=== PATIENT | male | born 1990 | race Caucasian/White ===

== ENCOUNTER 2022-12-16 14:12 | Emergency (ER) | payer BC, SELFPAY ==
[2022-12-16 14:20] VITALS: BP 137/75; PULSE 78; RESP 20; TEMP 37; O2SAT 99
--- NOTE | 2022-12-16 15:15 | DI.CT_ITS ---
Exam(s) CT ABDOMEN PELVIS W EXAM: CT ABDOMEN PELVIS W CLINICAL HISTORY: bloating abdomainl pain to back, recent weight los. TECHNIQUE: Imaging Protocol: Axial computed tomography images with coronal and sagittal reformatted images were created and reviewed CONTRAST MATERIAL: Intravenous: Omnipaque 350 Contrast volume:100 ml Oral: yes / no COMPARISON: No exams were available for comparison FINDINGS: ABDOMEN: Lung Bases: Normal where visualized. Liver: Normal density. No measurable mass. Gallbladder and biliary tract: No radiodense calculus or dilation. Pancreas: Normal density, no abnormal calcifications or inflammatory process. Spleen: Normal. Kidneys: Normal size, contour and axis. No radiodense stones or obstructive uropathy. No suspicious m asses seen. Adrenal glands: No masses seen. Vasculature: Abdominal aorta non-dilated. Soft tissues: Small fatty containing inguinal hernias. PELVIS: Bladder: No gross wall thickening. No calculi.No focal mass. Bowel: No obstruction. No bowel wall thickening. Appendix normal. Normal quantity of stool. Peritoneal cavity: No ascites, collection or mesenteric inflammatory response. Bones: Unremarkable for age. Reproductive organs: Within normal limits. Lymph nodes: Unremarkable. IMPRESSION:: Unremarkable CT scan of the abdomen and pelvis. RADIATION DOSE DELIVERED: 1,267.89mGy.cm Total DLP DATA REPOSITORY: All CT scans at this facility are submitted to the National Radiology Data Registry (NRDR) Dose Index Registry (DIR) with the [employer] ([employer]). RADIATION OPTIMIZATION: All CT scans at this facility use at least one of these dose optimization te chniques: automated exposure control; mA and/or kV adjustment per patient size (includes targeted exa ms where dose is matched to clinical indication); or iterative reconstruction.
[2022-12-16 15:47] LABS: Abs Immature Grans 0.04 10^3/uL (0.0-0.06); Absolute Basophil Count 0.03 10^3/uL (0.0-0.2); Absolute Eosinophil Count 0.12 10^3/uL (0.0-0.7); Absolute Lymphocyte Count 1.92 10^3/uL (1.2-3.4); Absolute Monocyte Count 0.67 10^3/uL (0.1-0.8); Absolute Neutrophil Count 7.58 10^3/uL (1.2-6.7); Basophils % 0.3; Eosinophils % 1.2; HCT 42.5 % (40.0-50.0); HGB 14.3 g/dL (13.5-17.5); Immature Grans % 0.4; Lymphocytes % 18.5; MCH 28.8 pg (27.0-33.0); MCHC 33.6 % (32.0-36.0); MCV 86 fL (80-95); MPV 10.7 fL (8.0-11.0); Monocytes % 6.5; Neutrophils % 73.1; Platelet Count 223 10^3/uL (130-400); RBC 4.96 10^6/uL (4.36-5.78); RDW 12.5 % (11.8-14.1); RDW-SD 38.8 fL; WBC 10.36 10^3/uL (4.4-10.8)
[2022-12-16 16:01] LABS: ALT 13 U/L (16-63); AST 15 U/L (15-37); Albumin 4.4 g/dL (3.4-5.0); Alkaline Phosphatase 60 U/L (46-116); Anion Gap 10.3 mmol/L (3-11); BUN 8 mg/dL (7-18); CO2 26.7 mmol/L (21.0-32.0); CREATININE 0.9 mg/dL (0.70-1.30); Calcium 9.5 mg/dL (8.5-10.1); Chloride 103 mmol/L (98-107); Estimated GFR 115.65 (mL/min/1.73m2); Glucose 85 mg/dL (74-106); Lipase 32 U/L (16-77); Sodium 140 mmol/L (136-145); Total Protein 7.5 g/dL (6.4-8.2)
--- NOTE | 2022-12-16 16:07 | ED.GENADUL_ITS ---
Discharge Plan Discharge Details Chief Complaint: Abd Prob Primary Care Provider: Xiao,Local ED Provider: Ernesto Quiroz Home Meds and New Rx's Prescriptions: No Action No Known Home Meds Medical Decision Making 32-year-old male here with abdominal bloating and discomfort over the past few weeks, associated constipation requiring regular use of laxative, recent hemorrhoids. Patient has had recent unintentional weight loss. Patient does have some mild diffuse tenderness worse in the upper abdomen. Nonperitoneal on exam. Patient is afebrile and hemodynamically stable. Plan to check screening labs and obtain CT of the abdomen pelvis to assess for acute surgical pathology. Lab Data Lab results reviewed: Yes I reviewed the patient's lab results. Labs: Laboratory Tests Range/Units 12/16/22 12/16/22 15:36 15:36 WBC (4.4-10.8) 10^3/uL 10.36 RBC (4.36-5.78) 10^6/uL 4.96 Hgb (13.5-17.5) g/dL 14.3 Hct (40.0-50.0) % 42.5 MCV (80-95) fL 86 MCH (27.0-33.0) pg 28.8 MCHC (32.0-36.0) % 33.6 RDW (11.8-14.1) % 12.5 Plt Count (130-400) 10^3/uL 223 MPV (8.0-11.0) fL 10.7 Immature Gran % 0.4 Neutrophils % 73.1 Lymphocytes % 18.5 Monocytes % 6.5 Eosinophils % 1.2 Basophils % 0.3 Nucleated RBC % (0.0-0.3) % 0.0 Absolute Neutrophils (1.2-6.7) 10^3/uL 7.58 H Absolute Lymphocytes (1.2-3.4) 10^3/uL 1.92 Absolute Monocytes (0.1-0.8) 10^3/uL 0.67 Absolute Eosinophils (0.0-0.7) 10^3/uL 0.12 Absolute Basophils (0.0-0.2) 10^3/uL 0.03 Sodium (136-145) mmol/L 140 Potassium (3.5-5.1) mmol/L 4.0 Chloride (98-107) mmol/L 103 Carbon Dioxide (21.0-32.0) mmol/L 26.7 Anion Gap (3-11) mmol/L 10.3 BUN (7-18) mg/dL 8 Creatinine (0.70-1.30) mg/dL 0.9 Est GFR (CKD-EPI 2020) (mL/min/1.73m2) 115.65 Glucose (74-106) mg/dL 85 Calcium (8.5-10.1) mg/dL 9.5 Total Bilirubin (0.2-1.0) mg/dL 1.0 AST (15-37) U/L 15 ALT (16-63) U/L 13 L Alkaline Phosphatase (46-116) U/L 60 Total Protein (6.4-8.2) g/dL 7.5 Albumin (3.4-5.0) g/dL 4.4 Lipase (16-77) U/L 32 HPI General Mode of arrival: ambulatory . Date/Time Provider Initiated Documentation: 12/16/22 14:35 . Limitations to Documentation: no limitations . Information obtained by: patient . HPI Narrative: 32-year-old male presents with chief complaint of abdominal discomfort. Patient notes over the past 2 to 3 weeks he has had constipation and abdominal bloating. Over the same period of time he has had hemorrhoids and was seen in express care for these. Hemorrhoids have improved but continues to have difficulty with bowel movements. Patient notes he cannot have a bowel movement without using MiraLAX which he has been using almost daily. He feels bloated in his diffuse abdomen but also discomfort in his lower back. Patient also concerned about unintentional 12 pound weight loss over the past week. Related Data Home Medications Medication Instructions Recorded Confirmed Unknown [No Known Home Meds] 12/16/22 12/16/22 General Stated Complaint: Abd Prob MARIEL: 4 Review of Systems All systems reviewed & are unremarkable except as noted in HPI and below Gastrointestinal Gastrointestinal: Reports as per HPI PFSH Social History Smoking/Tobacco Use Status: Current-Occasional Tobacco Type: e-cigarettes Smoking risk assessment performed?: Yes Alcohol Intake: never Drug use: Occasionally Substance use type: marijuana Housing: apartment Do you feel safe at home: Yes Do you feel safe in your relationship?: Yes Exam Const General: cooperative and no acute distress HENMT Mouth: moist mucous membranes Eyes Conjunctivae: normal conjunctivae Sclera: normal sclerae Resp Auscultation: clear to auscultation bilaterally, no rales, no rhonchi and no wheezes Cardio Rate: regular rate and not tachycardic Rhythm: regular rhythm GI Palpation: soft, not firm, no guarding, no masses, not rigid and tender (Upper abdomen, mild) with no rebound tenderness Auscultation: hypoactive bowel sounds Skin General skin exam: no rashes or lesions noted Neuro General: patient alert, patient awake, patient oriented x3 and tone normal Extrem General: no edema Psych Appearance: grossly normal Mental Status: mental status grossly normal Course Vital Signs Vital signs: Vital Signs Temperature 37.0 C 12/16/22 14:20 Pulse 78 12/16/22 14:20 Respiratory Rate 20 12/16/22 14:20 Blood Pressure 137/75 12/16/22 14:20 Pulse Oximetry 99 12/16/22 14:20 Temperature 37.0 C 12/16/22 14:20 Temperature Source Oral 12/16/22 14:20 Pulse 78 12/16/22 14:20 Respiratory Rate 20 12/16/22 14:20 Respiratory Effort Normal, Non-Labored 12/16/22 14:30 Blood Pressure 137/75 12/16/22 14:20 Blood Pressure Position Sitting 12/16/22 14:20 Pulse Oximetry 99 12/16/22 14:20 Oxygen Delivery Method Room Air 12/16/22 14:20 Oxygen Flow Rate 0 12/16/22 14:20 Pain Level 0 12/16/22 14:20 Lab/Test Results Lab/Test Results: Laboratory Tests Range/Units 12/16/22 12/16/22 15:36 15:36 WBC (4.4-10.8) 10^3/uL 10.36 RBC (4.36-5.78) 10^6/uL 4.96 Hgb (13.5-17.5) g/dL 14.3 Hct (40.0-50.0) % 42.5 MCV (80-95) fL 86 MCH (27.0-33.0) pg 28.8 MCHC (32.0-36.0) % 33.6 RDW (11.8-14.1) % 12.5 Plt Count (130-400) 10^3/uL 223 MPV (8.0-11.0) fL 10.7 Immature Gran % 0.4 Neutrophils % 73.1 Lymphocytes % 18.5 Monocytes % 6.5 Eosinophils % 1.2 Basophils % 0.3 Nucleated RBC % (0.0-0.3) % 0.0 Absolute Neutrophils (1.2-6.7) 10^3/uL 7.58 H Absolute Lymphocytes (1.2-3.4) 10^3/uL 1.92 Absolute Monocytes (0.1-0.8) 10^3/uL 0.67 Absolute Eosinophils (0.0-0.7) 10^3/uL 0.12 Absolute Basophils (0.0-0.2) 10^3/uL 0.03 Sodium (136-145) mmol/L 140 Potassium (3.5-5.1) mmol/L 4.0 Chloride (98-107) mmol/L 103 Carbon Dioxide (21.0-32.0) mmol/L 26.7 Anion Gap (3-11) mmol/L 10.3 BUN (7-18) mg/dL 8 Creatinine (0.70-1.30) mg/dL 0.9 Est GFR (CKD-EPI 2020) (mL/min/1.73m2) 115.65 Glucose (74-106) mg/dL 85 Calcium (8.5-10.1) mg/dL 9.5 Total Bilirubin (0.2-1.0) mg/dL 1.0 AST (15-37) U/L 15 ALT (16-63) U/L 13 L Alkaline Phosphatase (46-116) U/L 60 Total Protein (6.4-8.2) g/dL 7.5 Albumin (3.4-5.0) g/dL 4.4 Lipase (16-77) U/L 32
[2022-12-16] MEDS: Normal Saline - Diluent 50 ML VIAL IJ (16:38)
[2022-12-16] MEDS: Normal Saline Flush 10 ML SYR IVP (16:38)
[2022-12-16] MEDS: Omnipaque 350 MG/ML 100 ML BTL IJ (16:39)
--- NOTE | 2022-12-16 17:57 | NUR.NOTE ---
Nursing Note: Referral given to Care Management to establish care with PCP and with routine follow up. Referral faxed to [facility] Surgery for colonoscopy for constipation in 1 to 2 weeks.
[2022-12-16 18:05] VITALS: BP 132/80; PULSE 85; RESP 18; TEMP 36.8; O2SAT 99
== END 2022-12-16 18:14 | disposition home or self-care (01) ==
PROVIDERS: Student in an Organized Health Care Education/Training Program; Emergency Provider Physician Assistant
DX: K59.00 Constipation, unspecified (principal)
CPT/HCPCS: 36415; 80053; 83690; 99285; 74177; 85025; 99284; J3490